=== PATIENT | female | born 1980 | race Caucasian/White ===

== ENCOUNTER 2017-03-28 20:46 | Emergency (ER) | payer OTHER ==
[2017-03-28 21:23] VITALS: BP 124/87
[2017-03-28] MEDS ORDERED: predniSONE TAB* 20 MG PO ONE (21:28)
--- NOTE | 2017-03-28 21:35 | UC ---
Skin Complaint HPI - HPI Summary HPI Summary: sang deeloped an acne like rash on her face. recently finished a z pack. also in the past week has started eating meat. - History of Current Complaint Chief Complaint: UCRash Time Seen by Provider: 03/28/17 21:16 Stated Complaint: RASH Hx Obtained From: Patient Hx Last Menstrual Period: 03/06/17 ?: No Onset/Duration: Sudden Onset, Lasting Days Skin Exposure Onset/Duration: Days Ago Onset Severity: Moderate Current Severity: Moderate Location: Discrete - face Character: Redness Aggravating: Nothing Alleviating: Nothing Associated Signs & Symptoms: Positive: Rash - Allergy/Home Medications Allergies/Adverse Reactions: Allergies Allergy/AdvReac Type Severity Reaction Status Date / Time Penicillins Allergy Rash Verified 08/14/16 08:42 Home Medications: Home Medications Clonazepam 03/28/17 [History] Diphenhydramine HCl [Benadryl Allergy 25 MG TAB] 03/28/17 [History] Review of Systems Constitutional: Negative Skin: Rash Eyes: Negative ENT: Negative Respiratory: Negative Cardiovascular: Negative Gastrointestinal: Negative Genitourinary: Negative Motor: Negative Neurovascular: Negative Musculoskeletal: Negative Neurological: Negative Psychological: Negative All Other Systems Reviewed And Are Negative: Yes PMH/Surg Hx/FS Hx/Imm Hx Previously Healthy: Yes Endocrine History Of: Denies: Diabetes, Thyroid Disease Cardiovascular History Of: Denies: Cardiac Disorders, Hypertension Respiratory History Of: Denies: COPD, Asthma GI/ History Of: Denies: Ulcer - Surgical History Surgical History: None Surgery Procedure, Year, and Place: D&C 2015 - Family History Known Family History: Negative: Cardiac Disease, Hypertension - Social History Alcohol Use: None Substance Use Type: None Smoking Status (MU): Never Smoked Tobacco - Immunization History Most Recent Influenza Vaccination: 09/05 Most Recent Tetanus Shot: 12/12/15 Most Recent Pneumonia Vaccination: unsure Physical Exam Triage Information Reviewed: Yes Appearance: Well-Appearing, Well-Nourished, Ill-Appearing Vital Signs: Initial Vital Signs Pulse 73 03/28/17 21:18 Resp 16 03/28/17 21:18 BP 124/87 03/28/17 21:18 Pulse Ox 98 03/28/17 21:18 Vital Signs Reviewed: Yes Eye Exam: Normal Eyes: Positive: Conjunctiva Clear ENT: Positive: Hearing grossly normal, Pharynx normal, TMs normal Dental Exam: Normal Neck exam: Normal Neck: Positive: Supple, Nontender, No Lymphadenopathy Respiratory Exam: Normal Respiratory: Positive: Chest non-tender, Lungs clear, Normal breath sounds Cardiovascular Exam: Normal Cardiovascular: Positive: RRR, No Murmur, Pulses Normal Abdominal Exam: Normal Abdomen Description: Positive: Nontender, No Organomegaly, Soft Bowel Sounds: Positive: Present Musculoskeletal Exam: Normal Musculoskeletal: Positive: Strength Intact, ROM Intact, No Edema Neurological Exam: Normal Neurological: Positive: Alert, Muscle Tone Normal Psychological Exam: Normal Skin: Positive: Other - small vesical and pusules with erythemic base dispersed all over face, concentrated across the forehead and cheeks and chin Course/Dx - Course Course Of Treatment: hx obtained, exam performed, meds reviewed, discussed possible causes and likelyhood of allergic reatcion vs change in diet as she recently started eating animal protien again. - Differential Diagnoses - Skin Complaint Differential Diagnoses: Abscess, Cellulitis, Contact Dermatitis, Eczema, Urticaria, Other - acne - Diagnoses Provider Diagnoses: rash Discharge - Discharge Plan Condition: Stable Disposition: HOME Patient Education Materials: Acne (ED), Dermatitis (ED) Additional Instructions: 1. take the prednisone, if the rash begins to respond we know it is likely an allergic reaction. 2. Reverese the diet change to see if the skin responds to that as well 3. Follow up with your doctor if symtpoms persist.
== END 2017-03-28 21:45 | disposition home or self-care (01) ==
LOC: UCEAST 20:46
DX: R21 Rash and other nonspecific skin eruption (principal); Z88.0 Allergy status to penicillin
CPT/HCPCS: 99212; G0463; J7512

== ENCOUNTER 2018-10-19 14:51 | Emergency (ER) | payer OTHER ==
--- NOTE | 2018-10-19 15:06 | UC ---
Throat Pain/Nasal Ghulam HPI - HPI Summary HPI Summary: 38 yo female presents with a dry cough and mild sore throat since 10/07. Her symptoms have been intermittent. 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 She has been taking ibuprofen for her symptoms with no relief. She does not smoke. Denies fever, chills, sinus symptoms, SOB, chest pain. - History of Current Complaint Chief Complaint: UCRespiratory Stated Complaint: uri Time Seen by Provider: 10/19/18 15:06 Hx Obtained From: Patient Hx Last Menstrual Period: 10/19/18 Onset/Duration: Gradual Onset Severity: Mild Pain Intensity: 4 Pain Scale Used: 0-10 Numeric Cough: Nonproductive - Allergies/Home Medications Allergies/Adverse Reactions: Allergies Allergy/AdvReac Type Severity Reaction Status Date / Time Penicillins Allergy Rash Verified 10/19/18 15:01 Home Medications: Home Medications Citalopram TAB* [CeleXA TAB*] 10 mg PO DAILY 10/19/18 [History Confirmed ] Ibuprofen 400 mg PO ONCE PRN 10/19/18 [History Confirmed 10/19/18] PMH/Surg Hx/FS Hx/Imm Hx Psychological History: Anxiety, Depression - Surgical History Surgical History: Yes Surgery Procedure, Year, and Place: D&C 2015 - Family History Known Family History: Negative: Cardiac Disease, Hypertension - Social History Occupation: Employed Full-time Lives: With Family Alcohol Use: Occasionally Substance Use Type: None Smoking Status (MU): Never Smoked Tobacco - Immunization History Most Recent Influenza Vaccination: 09/05 Most Recent Tetanus Shot: 12/12/15 Most Recent Pneumonia Vaccination: unsure Review of Systems All Other Systems Reviewed And Are Negative: Yes Constitutional: Positive: Negative Skin: Positive: Negative Eyes: Positive: Negative ENT: Positive: Negative Respiratory: Positive: Cough Cardiovascular: Positive: Negative Gastrointestinal: Positive: Negative Neurovascular: Positive: Negative Neurological: Positive: Negative Psychological: Positive: Negative Physical Exam - Summary Physical Exam Summary: GENERAL: NAD. WDWN. No pain distress. SKIN: No rashes, sores, lesions, or open wounds. HEENT: Head: AT/NC Eyes: EOM intact. Conjunctiva clear without inflammation or discharge. Ears: Hearing grossly normal. TMs intact, no bulging, erythema, or edema. Nose: Nasal mucosa pink and moist. NTTP maxillary and frontal sinus. Throat: Posterior oropharynx without exudates, erythema, or tonsillar enlargement. Uvula midline. NECK: Supple. Nontender. No lymphadenopathy. CHEST: CTAB. No r/r/w. No accessory muscle use. Breathing comfortably and in no distress. CV: RRR. Without m/r/g. Pulses intact. Cap refill <2seconds NEURO: Alert. PSYCH: Age appropriate behavior. Triage Information Reviewed: Yes Vital Signs: Initial Vital Signs Temp 98.3 F 10/19/18 14:56 Pulse 76 10/19/18 14:56 Resp 18 10/19/18 14:56 BP 118/85 10/19/18 14:56 Pulse Ox 100 10/19/18 14:56 Vital Signs Reviewed: Yes Throat Pain/Nasal Course/Dx - Course Course Of Treatment: Suspect viral cough. Will treat with prednisone and cough suppressant. Advised to f/u if symptoms worsen. - Differential Dx/Diagnosis Provider Diagnosis: Viral URI with cough Discharge - Sign-Out/Discharge Documenting (check all that apply): Patient Departure All imaging exams completed and their final reports reviewed: No Studies - Discharge Plan Condition: Stable Disposition: HOME Prescriptions: Benzonatate CAP* [Tessalon 100 MG CAP*] 100 mg PO TID PRN #21 cap PRN Reason: Cough Codeine Phosphate/Guaifenesin [Guaifen-Codeine 100-10 mg/5 ml] 5 ml PO BEDTIME PRN #35 ml MDD 5mL PRN Reason: Cough predniSONE TAB* [Deltasone 20 MG TAB*] 40 mg PO DAILY #10 tab Patient Education Materials: Viral Syndrome (ED), Acute Cough (ED) Referrals: Adonay Laureano MD [Primary Care Provider] - Additional Instructions: If you develop a fever, shortness of breath, chest pain, new or worsening symptoms - please call your PCP or go to the ED. - Billing Disposition and Condition Condition: STABLE Disposition: Home
[2018-10-19 15:07] VITALS: BP 118/85
== END 2018-10-19 15:20 | disposition home or self-care (01) ==
LOC: UCEAST 14:51
DX: J06.9 Acute upper respiratory infection, unspecified (principal); R05 Cough; Z88.0 Allergy status to penicillin
CPT/HCPCS: 99212; G0463

== ENCOUNTER 2020-01-21 10:10 | Emergency (ER) | payer OTHER ==
--- OUTSIDE RECORDS SUMMARY | 2020-01-21 10:19 | XMS REPORT | Continuity of Care Document ---
:1980 External Reference #:[id number] Author Name Cindy ConnerdayasánchezJennifer Address [address] [place] [address] Problems Active Problems Provider Date Influenza with non-respiratory manifestation Stephon Burrell M.D. Onset: Dizziness and giddiness Adonay Laureano M.D. Onset: 07/20/2016 Anxiety state Adonay Laureano M.D. Onset: 07/16/2014 Carpal joint sprain Adonay Laureano M.D. Onset: 06/03/2012 Contusion of wrist Adonay Laureano M.D. Onset: 06/03/2012 Social History Type Date Description Comments Sex Unknown Tobacco Use Start: Unknown Nonsmoker ETOH Use Rare Tobacco Use Start: Unknown Nonsmoker Smoking Status Reviewed: 01/13/20 Nonsmoker Allergies, Adverse Reactions, Alerts Active Allergies Reaction Severity Comments Date Penicillin 05/23/2002 Bees 05/23/2002 Azithromycin facial rash Moderate 09/09/2019 Medications Active Medications SIG Qnty Indications Ordering Provider Date Citalopram take one tablet by 30tabs Michelle Tavarez 12/23/2017 Hydrobromide mouth every day CANDACE Jon 10mg Tablets Nuvaring insert one ring 3units Cailin 11/25/2017 vaginally, retain Melissa, DISULF[employer]ER TENDER 0.12-0.015mg/24HR x 3 weeks, then Ring remove, allow withdrawal bleed, and reinsert new ring sun after menses Probiotic 1 by mouth every Unknown Capsules day History Medications Azithromycin z laurie as 6tabs J01.90 Aleisha Lutz 09/09/2019 - 250mg directed, 2 tabs CANDACE Weeks 09/09/2019 Tablets day one, one tab day 2-5 Doxycycline Hyclate one tab by mouth 20tabs J01.90 Aleisha Lutz 09/09/2019 - twice a day CANDACE Weeks 01/13/2020 100mg Tablets Medications Administered in Office Medication SIG Qnty Indications Ordering Provider Date Brief Emotional/Behav Cailin Torres, [facility] 06/02/2018 Assessment W/ Scoring Doc Per Standard Inst Injection TB Intradermal Test Chyan Tawny, [facility] 06/07/2017 Injection Immunizations CPT Code Status Date Vaccine Lot # [id number] Given 09/29/2019 Influenza Vac, Quadriv[place], [place] [id number] Given 09/19/2018 Influenza Vac, Quadriv[place], [place] [id number] Given 08/23/2017 Influenza Vac, Quadriv[place], [place] [id number] Given 09/23/2016 Influenza vac quadrivalent preservative free 6 [id number] months and up [id number] Given 09/15/2015 Influenza Vac, Quadriv[place], [place] [address] Given 08/03/2014 DO Not Use Split Influenza Virus Vaccine [id number] Given 10/30/2003 MMR Virus Immunization 61334 Given 10/16/1991 MMR Virus Immunization Vital Signs Date Vital Result Comment 01/13/2020 11:12am BP Systolic 120 mmHg BP Diastolic 80 mmHg Heart Rate 84 /min Body Temperature 99.1 F Respiratory Rate 16 /min Height 67.5 inches 5'7.50" Weight 154.00 lb BMI (Body Mass Index) 23.8 kg/m2 09/09/2019 9:40am BP Systolic 102 mmHg BP Diastolic 66 mmHg Heart Rate 79 /min Body Temperature 97.5 F Respiratory Rate 16 /min Height 67.5 inches 5'7.50" Weight 150.00 lb BMI (Body Mass Index) 23.1 kg/m2 Results Description No Information Available Procedures Description No Information Available Medical Devices Description No Information Available Encounters Type Date Location Provider Dx Diagnosis Office Visit 09/09/2019 Main Office Aleisha Lutz J01.90 Acute sinusitis, 9:45a CANDACE Weeks unspecified J04.0 Acute laryngitis Assessments Date Code Description Provider 01/13/2020 J06.9 Acute upper respiratory infection, Cindy Trammell Afnp-C unspecified 01/13/2020 R05 Cough Cindy Trammell Afnp-C 09/09/2019 J01.90 Acute sinusitis, unspecified Aleisha Weeks NP 09/09/2019 J04.0 Acute laryngitis Aleisha Weeks NP Plan of Treatment 01/13/2020 - Robi Lozano-CJ06.9 Acute upper respiratory infection, unspecifiedNew Labs:Flu A&B (Fma), Ordered: 01/13/20R05 CoughFollow up: Followup:. (Follow up)AllComments:Medication Management Patient Understands medications she's taking? Yes No Are there Barriers to Adherence? Yes No Has the patient been asked about herbal supplements and therapies, and OTC meds? Yes No Care Plan1. Patient has been queried about patient's goals/preferences and functional/lifestyle goals at relevant visits. If relevant, describe: na2. Treatment goals as explained to the patient: abovesx resolution 3. Are there barriers to meeting treatment goals? Yes No If Yes, please describe:4. Self-Management goals as described to the patient: Yes No your sx appear viral and out to respond to sx rx : rest/ fluids , decongestant f/u if no better or if sx worsen or persist Functional Status Description No Information Available Mental Status Description No Information Available Referrals Description No Information Available
[2020-01-21 10:22] VITALS: BP 110/72
--- NOTE | 2020-01-21 10:54 | UC ---
Ear Complaint HPI - HPI Summary HPI Summary: 39yo female presenting with left ear pain x4 days and nasal congestion x2 weeks. Patient states she is concerned she may have a sinus infection or an ear infection. Denies nasal discharge or PND. Denies sinus tenderness/pressure. State she is "just stuffy." Denies drainage from the ear. Denies decreased hearing. Denies right ear symptoms. Denies fever and chills. Denies taking anything for symptoms other than ibuprofen. - History of Current Complaint Chief Complaint: UCEar Stated Complaint: EAR PAIN Hx Obtained From: Patient Hx Last Menstrual Period: 01/18/20 Pain Intensity: 7 Pain Scale Used: 0-10 Numeric - Allergies/Home Medications Allergies/Adverse Reactions: Allergies Allergy/AdvReac Type Severity Reaction Status Date / Time amoxicillin Allergy Intermediate Rash Verified 01/21/20 10:22 Penicillins Allergy Rash Verified 01/21/20 10:22 Home Medications: Home Medications Citalopram TAB* [CeleXA TAB*] 10 mg PO DAILY 10/19/18 [History Confirmed ] Ibuprofen 400 mg PO SEE INSTRUCTIONS 01/21/20 [History Confirmed 01/21/20] PMH/Surg Hx/FS Hx/Imm Hx - Surgical History Surgical History: Yes Surgery Procedure, Year, and Place: d/c - Family History Known Family History: Positive: Diabetes Negative: Cardiac Disease, Hypertension - Social History Alcohol Use: Weekly Substance Use Type: None Smoking Status (MU): Never Smoked Tobacco - Immunization History Most Recent Influenza Vaccination: 09/05 Most Recent Tetanus Shot: 12/12/15 Most Recent Pneumonia Vaccination: unsure Review of Systems All Other Systems Reviewed And Are Negative: Yes Constitutional: Positive: Negative ENT: Positive: Ear Ache - left, Sinus Congestion Respiratory: Positive: Negative Cardiovascular: Positive: Negative Gastrointestinal: Positive: Negative Musculoskeletal: Positive: Negative Neurological/Mental Status: Positive: Negative Physical Exam - Summary Physical Exam Summary: Vital Signs Reviewed: Yes A+Ox3, no distress, well-appearing Eyes: Conjunctiva Clear ENT: Hearing grossly normal, right TM clear, mild effusion of left TM with bulging or erythema, no sinus tenderness, moist, uvula midline, no exudate, no erythema Neck: Positive: Supple Respiratory: Positive: No respiratory distress, No accessory muscle use + CTA throughout no w/r Cardiovascular: RRR nl s1, s2 no m/r Musculoskeletal Exam: SERVIN x 4 without difficulty Neurological: Positive: Alert Psychological: Positive: age appropriate behavior Skin: Positive: no rash, no ecchymosis Vital Signs: Initial Vital Signs Temp 98.8 F 01/21/20 10:18 Pulse 75 01/21/20 10:18 Resp 18 01/21/20 10:18 BP 110/72 01/21/20 10:18 Pulse Ox 99 01/21/20 10:18 Ear Complaint Course/Dx - Course Course Of Treatment: Discussed serous otitis media and no s/s of infection. Instructed to take otc decongestant and add flonase for symptom relief. Instructed to follow up with pcp for worsening or persistent symptoms. Patient voiced understanding and agreed with treatment plan. - Differential Dx/Diagnosis Provider Diagnosis: Acute serous otitis media, left ear Discharge ED - Sign-Out/Discharge Documenting (check all that apply): Patient Departure All imaging exams completed and their final reports reviewed: No Studies - Discharge Plan Condition: Stable Disposition: HOME Patient Education Materials: Serous Otitis Media (ED) Referrals: Adonay Laureano MD [Primary Care Provider] - If Needed Additional Instructions: Continue with an over the counter decongestant. You may also use flonase for symptom relief and continue with ibuprofen for pain relief. Follow up with your primary care provider if symptoms worsen or do not improve over the next few weeks. - Billing Disposition and Condition Condition: STABLE Disposition: Home
== END 2020-01-21 11:13 | disposition home or self-care (01) ==
LOC: UCEAST 10:10
DX: H65.02 Acute serous otitis media, left ear (principal); R09.89 Other specified symptoms and signs involving the circulatory and respiratory systems; Z88.0 Allergy status to penicillin
CPT/HCPCS: 99211; G0463